=== PATIENT | male | born 1995 | race Caucasian/White ===

== ENCOUNTER 2018-10-02 11:11 | Inpatient (IN) | payer OTHER ==
[2018-10-02] MEDS ORDERED: ZOFRAN ODT PO ONE (11:23)
--- NOTE | 2018-10-02 11:26 | Event Note ---
ED Screening Note Date of service: 10/02/18 Time: 11:22 ED Screening Note: 23 y/o male comes in for epigastric pain with N/V. time 1 day This initial assessment/diagnostic orders/clinical plan/treatment(s) is/are subject to change based on patients health status, clinical progression and re-assessment by fellow clinical providers in the ED. Further treatment and workup at subsequent clinical providers discretion. Patient/guardian urged not to elope from the ED as their condition may be serious if not clinically assessed and managed. Initial orders include:
[2018-10-02 12:23] LABS: Hematocrit 39.1 % (35.5-45.6); Hemoglobin 13.2 gm/dl (11.8-15.2); Mean Corpuscular HGB Conc 34 % (32-34); Mean Corpuscular Volume 81 fl (84-94); Platelet Count 216 K/mm3 (140-440); Red Blood Count 4.84 M/mm3 (3.65-5.03); Red Cell Distribution Width 13.7 % (13.2-15.2)
[2018-10-02 12:28] LABS: Albumin 4.7 g/dL (3.9-5); Calcium 7.8 mg/dL (8.4-10.2)
[2018-10-02] MEDS ORDERED: NACL 0.9% 1000 ML 1,000 ML IV ONE (12:49)
[2018-10-02 12:50] LABS: Bacteria,Urine 1+ /HPF (Negative); Bilirubin,Urine NEG (Negative); Blood,Urine SM (Negative); Color,Urine Straw (Yellow); Urobilinogen,Urine < 2.0 mg/dL (<2.0); WBC,Urine < 1.0 /HPF (0.0-6.0)
[2018-10-02] MEDS ORDERED: MORPHINE IV ONE (12:53)
[2018-10-02] MEDS ORDERED: PEPCID IV ONE (12:53)
--- NOTE | 2018-10-02 12:54 | Emergency Department Report ---
ED N/V/D HPI - General Chief complaint: Abdominal Pain Stated complaint: STOMACH PAIN/NAUSEA/VOMITING Time Seen by Provider: 10/02/18 11:21 Source: patient Mode of arrival: Ambulatory Limitations: No Limitations - History of Present Illness Initial comments: 23-year-old male with no past medical or surgical history presents to the hospital complaining of a week and nausea, vomiting, diarrhea, and moderate intermittent epigastric pain. Pain is worse to palpation. Patient denies melena, hematochezia, hematemesis, fever, recent travel, or sick contacts. Patient complains of feeling dizzy. Pt denies daily alcohol intake. - Related Data Allergies Allergy/AdvReac Type Severity Reaction Status Date / Time No Known Allergies Allergy Verified 10/02/18 14:49 ED Review of Systems ROS: Stated complaint: STOMACH PAIN/NAUSEA/VOMITING Other details as noted in HPI Comment: All other systems reviewed and negative ED Past Medical Hx - Past Medical History Previous Medical History?: No - Surgical History Past Surgical History?: No - Social History Smoking Status: Never Smoker Substance Use Type: None ED Physical Exam - General Limitations: No Limitations - Other Other exam information: General: No acute distress Head: Atraumatic normocephalic Eyes: Normal appearance, pupils equal reactive to light, extraocular movements intact ENT: dry tongue Neck: Normal appearance, no C-spine tenderness, no meningismus Chest: Clear to auscultation bilaterally, no wheezes, rales, or crackles Cardiovascular: Regular rate and rhythm Abdomen: Soft, nondistended, mild epigastric tendernes, no rebound or guarding, normal bowel sounds Back: Normal inspection, nontender Extremity: Normal inspection, no deformity, full range of motion Neuro: Alert and oriented 3, speech clear, no gross motor or sensory deficit Skin: No rash, warmth, or erythema ED Course Vital Signs 10/02/18 10/02/18 10/02/18 11:21 13:15 14:00 Temperature 97.7 F Pulse Rate 52 L 47 L Respiratory 18 16 12 Rate Blood Pressure 169/87 170/86 O2 Sat by Pulse 99 100 Oximetry - Consultations Consultation #1: 10/02/18 13:57 Case d/w nephro Dr diaz, will consult ED Medical Decision Making - Lab Data Result diagrams: 10/02/18 11:34 10/02/18 11:34 Lab Results 10/02/18 10/02/18 10/02/18 Range/Units 11:34 11:34 11:34 WBC 11.2 H (4.5-11.0) K/mm3 RBC 4.84 (3.65-5.03) M/mm3 Hgb 13.2 (11.8-15.2) gm/dl Hct 39.1 (35.5-45.6) % MCV 81 L (84-94) fl MCH 27 L (28-32) pg MCHC 34 (32-34) % RDW 13.7 (13.2-15.2) % Plt Count 216 (140-440) K/mm3 Add Manual Diff Complete Total Counted 100 Seg Neutrophils % Nutrition Teacher Seg Neuts % (Manual) 99.0 H (40.0-70.0) % Band Neutrophils % 0 % Lymphocytes % (Manual) 1.0 L (13.4-35.0) % Reactive Lymphs % (Man) 0 % Monocytes % (Manual) 0 (0.0-7.3) % Eosinophils % (Manual) 0 (0.0-4.3) % Basophils % (Manual) 0 (0.0-1.8) % Metamyelocytes % 0 % Myelocytes % 0 % Promyelocytes % 0 % Blast Cells % 0 % Nucleated RBC % Not Reportable Seg Neutrophils # Man 11.1 H (1.8-7.7) K/mm3 Band Neutrophils # 0.0 K/mm3 Lymphocytes # (Manual) 0.1 L (1.2-5.4) K/mm3 Abs React Lymphs (Man) 0.0 K/mm3 Monocytes # (Manual) 0.0 (0.0-0.8) K/mm3 Eosinophils # (Manual) 0.0 (0.0-0.4) K/mm3 Basophils # (Manual) 0.0 (0.0-0.1) K/mm3 Metamyelocytes # 0.0 K/mm3 Myelocytes # 0.0 K/mm3 Promyelocytes # 0.0 K/mm3 Blast Cells # 0.0 K/mm3 WBC Morphology Not Reportable Hypersegmented Neuts Not Reportable Hyposegmented Neuts Not Reportable Hypogranular Neuts Not Reportable Smudge Cells Not Reportable Toxic Granulation Not Reportable Toxic Vacuolation Not Reportable Dohle Bodies Not Reportable Pelger-Huet Anomaly Not Reportable Raj Rods Not Reportable Platelet Estimate Consistent w auto Clumped Platelets Not Reportable Plt Clumps, EDTA Not Reportable Large Platelets Not Reportable Giant Platelets Not Reportable Platelet Satelliting Not Reportable Plt Morphology Comment Not Reportable RBC Morphology Normal Dimorphic RBCs Not Reportable Polychromasia Not Reportable Hypochromasia Not Reportable Poikilocytosis Not Reportable Anisocytosis Not Reportable Microcytosis Not Reportable Macrocytosis Not Reportable Spherocytes Not Reportable Pappenheimer Bodies Not Reportable Sickle Cells Not Reportable Target Cells Not Reportable Tear Drop Cells Not Reportable Ovalocytes Not Reportable Helmet Cells Not Reportable [place] Bodies Not Reportable [place] Not Reportable Diamond Cells Not Reportable Bite Cells Not Reportable Crenated Cell Not Reportable Elliptocytes Not Reportable Acanthocytes (Spur) Not Reportable Rouleaux Not Reportable Hemoglobin C Crystals Not Reportable Schistocytes Not Reportable Malaria parasites Not Reportable Vamshi Bodies Not Reportable Hem Pathologist Commnt No Sodium 138 (137-145) mmol/L Potassium 3.7 (3.6-5.0) mmol/L Chloride 101.6 (98-107) mmol/L Carbon Dioxide 16 L (22-30) mmol/L Anion Gap 24 mmol/L BUN 62 H (9-20) mg/dL Creatinine 7.0 H (0.8-1.5) mg/dL Estimated GFR 10 ml/min BUN/Creatinine Ratio 9 % Glucose 152 H (75-100) mg/dL Osmolality Mosm/kg Calcium 7.8 L (8.4-10.2) mg/dL Magnesium (1.7-2.3) mg/dL Total Bilirubin 0.50 (0.1-1.2) mg/dL AST 11 (5-40) units/L ALT 14 (7-56) units/L Alkaline Phosphatase 139 H (35-129) units/L Total Creatine Kinase (55-170) units/L Troponin T (0.00-0.029) ng/mL Total Protein 8.3 H (6.3-8.2) g/dL Albumin 4.7 (3.9-5) g/dL Albumin/Globulin Ratio 1.3 % Lipase 38 (13-60) units/L Urine Color (Yellow) Urine Turbidity (Clear) Urine pH (5.0-7.0) Ur Specific [place] (1.003-1.030) Urine Protein (Negative) mg/dL Urine Glucose (UA) (Negative) mg/dL Urine Ketones (Negative) mg/dL Urine Blood (Negative) Urine Nitrite (Negative) Urine Bilirubin (Negative) Urine Urobilinogen (<2.0) mg/dL Ur Leukocyte Esterase (Negative) Urine WBC (Auto) (0.0-6.0) /HPF Urine RBC (Auto) (0.0-6.0) /HPF Urine Bacteria (Auto) (Negative) /HPF Urine Osmolality Mosm/kg Urine Sodium mmol/L Urine Chloride (110-250) mmolL 10/02/18 10/02/18 10/02/18 Range/Units 11:34 11:34 11:34 WBC (4.5-11.0) K/mm3 RBC (3.65-5.03) M/mm3 Hgb (11.8-15.2) gm/dl Hct (35.5-45.6) % MCV (84-94) fl MCH (28-32) pg MCHC (32-34) % RDW (13.2-15.2) % Plt Count (140-440) K/mm3 Add Manual Diff Total Counted Seg Neutrophils % Seg Neuts % (Manual) (40.0-70.0) % Band Neutrophils % % Lymphocytes % (Manual) (13.4-35.0) % Reactive Lymphs % (Man) % Monocytes % (Manual) (0.0-7.3) % Eosinophils % (Manual) (0.0-4.3) % Basophils % (Manual) (0.0-1.8) % Metamyelocytes % % Myelocytes % % Promyelocytes % % Blast Cells % % Nucleated RBC % Seg Neutrophils # Man (1.8-7.7) K/mm3 Band Neutrophils # K/mm3 Lymphocytes # (Manual) (1.2-5.4) K/mm3 Abs React Lymphs (Man) K/mm3 Monocytes # (Manual) (0.0-0.8) K/mm3 Eosinophils # (Manual) (0.0-0.4) K/mm3 Basophils # (Manual) (0.0-0.1) K/mm3 Metamyelocytes # K/mm3 Myelocytes # K/mm3 Promyelocytes # K/mm3 Blast Cells # K/mm3 WBC Morphology Hypersegmented Neuts Hyposegmented Neuts Hypogranular Neuts Smudge Cells Toxic Granulation Toxic Vacuolation Dohle Bodies Pelger-Huet Anomaly Raj Rods Platelet Estimate Clumped Platelets Plt Clumps, EDTA Large Platelets Giant Platelets Platelet Satelliting Plt Morphology Comment RBC Morphology Dimorphic RBCs Polychromasia Hypochromasia Poikilocytosis Anisocytosis Microcytosis Macrocytosis Spherocytes Pappenheimer Bodies Sickle Cells Target Cells Tear Drop Cells Ovalocytes Helmet Cells [place] Bodies [place] Diamond Cells Bite Cells Crenated Cell Elliptocytes Acanthocytes (Spur) Rouleaux Hemoglobin C Crystals Schistocytes Malaria parasites Vamshi Bodies Hem Pathologist Commnt Sodium (137-145) mmol/L Potassium (3.6-5.0) mmol/L Chloride (98-107) mmol/L Carbon Dioxide (22-30) mmol/L Anion Gap mmol/L BUN (9-20) mg/dL Creatinine (0.8-1.5) mg/dL Estimated GFR ml/min BUN/Creatinine Ratio % Glucose (75-100) mg/dL Osmolality Mosm/kg Calcium (8.4-10.2) mg/dL Magnesium 1.70 (1.7-2.3) mg/dL Total Bilirubin (0.1-1.2) mg/dL AST (5-40) units/L ALT (7-56) units/L Alkaline Phosphatase (35-129) units/L Total Creatine Kinase 248 H (55-170) units/L Troponin T < 0.010 (0.00-0.029) ng/mL Total Protein (6.3-8.2) g/dL Albumin (3.9-5) g/dL Albumin/Globulin Ratio % Lipase (13-60) units/L Urine Color (Yellow) Urine Turbidity (Clear) Urine pH (5.0-7.0) Ur Specific [place] (1.003-1.030) Urine Protein (Negative) mg/dL Urine Glucose (UA) (Negative) mg/dL Urine Ketones (Negative) mg/dL Urine Blood (Negative) Urine Nitrite (Negative) Urine Bilirubin (Negative) Urine Urobilinogen (<2.0) mg/dL Ur Leukocyte Esterase (Negative) Urine WBC (Auto) (0.0-6.0) /HPF Urine RBC (Auto) (0.0-6.0) /HPF Urine Bacteria (Auto) (Negative) /HPF Urine Osmolality Mosm/kg Urine Sodium mmol/L Urine Chloride (110-250) mmolL 10/02/18 10/02/18 10/02/18 Range/Units 12:16 12:40 12:50 WBC (4.5-11.0) K/mm3 RBC (3.65-5.03) M/mm3 Hgb (11.8-15.2) gm/dl Hct (35.5-45.6) % MCV (84-94) fl MCH (28-32) pg MCHC (32-34) % RDW (13.2-15.2) % Plt Count (140-440) K/mm3 Add Manual Diff Total Counted Seg Neutrophils % Seg Neuts % (Manual) (40.0-70.0) % Band Neutrophils % % Lymphocytes % (Manual) (13.4-35.0) % Reactive Lymphs % (Man) % Monocytes % (Manual) (0.0-7.3) % Eosinophils % (Manual) (0.0-4.3) % Basophils % (Manual) (0.0-1.8) % Metamyelocytes % % Myelocytes % % Promyelocytes % % Blast Cells % % Nucleated RBC % Seg Neutrophils # Man (1.8-7.7) K/mm3 Band Neutrophils # K/mm3 Lymphocytes # (Manual) (1.2-5.4) K/mm3 Abs React Lymphs (Man) K/mm3 Monocytes # (Manual) (0.0-0.8) K/mm3 Eosinophils # (Manual) (0.0-0.4) K/mm3 Basophils # (Manual) (0.0-0.1) K/mm3 Metamyelocytes # K/mm3 Myelocytes # K/mm3 Promyelocytes # K/mm3 Blast Cells # K/mm3 WBC Morphology Hypersegmented Neuts Hyposegmented Neuts Hypogranular Neuts Smudge Cells Toxic Granulation Toxic Vacuolation Dohle Bodies Pelger-Huet Anomaly Raj Rods Platelet Estimate Clumped Platelets Plt Clumps, EDTA Large Platelets Giant Platelets Platelet Satelliting Plt Morphology Comment RBC Morphology Dimorphic RBCs Polychromasia Hypochromasia Poikilocytosis Anisocytosis Microcytosis Macrocytosis Spherocytes Pappenheimer Bodies Sickle Cells Target Cells Tear Drop Cells Ovalocytes Helmet Cells [place] Bodies [place] Cells Bite Cells Crenated Cell Elliptocytes Acanthocytes (Spur) Rouleaux Hemoglobin C Crystals Schistocytes Malaria parasites Vamshi Bodies Hem Pathologist Commnt Sodium (137-145) mmol/L Potassium (3.6-5.0) mmol/L Chloride (98-107) mmol/L Carbon Dioxide (22-30) mmol/L Anion Gap mmol/L BUN (9-20) mg/dL Creatinine (0.8-1.5) mg/dL Estimated GFR ml/min BUN/Creatinine Ratio % Glucose (75-100) mg/dL Osmolality 309 Mosm/kg Calcium (8.4-10.2) mg/dL Magnesium (1.7-2.3) mg/dL Total Bilirubin (0.1-1.2) mg/dL AST (5-40) units/L ALT (7-56) units/L Alkaline Phosphatase (35-129) units/L Total Creatine Kinase (55-170) units/L Troponin T (0.00-0.029) ng/mL Total Protein (6.3-8.2) g/dL Albumin (3.9-5) g/dL Albumin/Globulin Ratio % Lipase (13-60) units/L Urine Color Straw (Yellow) Urine Turbidity Clear (Clear) Urine pH 6.0 (5.0-7.0) Ur Specific [place] 1.009 (1.003-1.030) Urine Protein >500 (Negative) mg/dL Urine Glucose (UA) 50 (Negative) mg/dL Urine Ketones Neg (Negative) mg/dL Urine Blood Sm (Negative) Urine Nitrite Neg (Negative) Urine Bilirubin Neg (Negative) Urine Urobilinogen < 2.0 (<2.0) mg/dL Ur Leukocyte Esterase Neg (Negative) Urine WBC (Auto) < 1.0 (0.0-6.0) /HPF Urine RBC (Auto) 6.0 (0.0-6.0) /HPF Urine Bacteria (Auto) 1+ (Negative) /HPF Urine Osmolality 281 Mosm/kg Urine Sodium 43 mmol/L Urine Chloride 29.4 L (110-250) mmolL - EKG Data -: EKG Interpreted by Hi EKG shows normal: sinus rhythm, axis (qrs 77), QRS complexes (qrsd 100), ST-T waves (no stemi/t inv) Rate: bradycardia (54) - Radiology Data Radiology results: report reviewed CT ABDOMEN AND PELVIS WITHOUT CONTRAST INDICATION / CLINICAL INFORMATION: MAIN: mid abd pain, started yesterday n,v,d acute renal failure. TECHNIQUE: Axial CT images were obtained through the abdomen and pelvis without IV contrast. All CT scans at this location are performed using CT dose reduction for ALARA by means of automated exposure control. COMPARISON: None available. FINDINGS: LOWER CHEST: No significant abnormality. LIVER: No significant abnormality. GALLBLADDER: No significant abnormality. BILE DUCTS: No significant abnormality. PANCREAS: No significant abnormality. SPLEEN: No significant abnormality. ADRENALS: No significant abnormality. RIGHT KIDNEY and URETER: Decreased size long axis 9 cm LEFT KIDNEY and URETER: Decreased size long axis 8.3 cm. Single punctate calcifications present left kidney STOMACH and SMALL BOWEL: No significant abnormality. COLON: No significant abnormality. APPENDIX: Multiple small calculi present in the appendix PERITONEUM: No free fluid. No free air. No fluid collection. LYMPH NODES: No significant adenopathy. AORTA and ARTERIES: No significant abnormality. IVC and VEINS: No significant abnormality. URINARY BLADDER: No significant abnormality. REPRODUCTIVE ORGANS: No significant abnormality. ADDITIONAL FINDINGS: None SKELETAL SYSTEM: Bilateral pars defect L5 without a significant spondylolisthesis L5-S1 IMPRESSION: 1. No significant abnormality. 2. Multiple small calculi within the appendix 3. Slightly shrunken kidneys 4. Left nephrolithiasis 5. Bilateral pars defect L5 - Medical Decision Making pt requires admission for acute renal failure an htn n/v/d with unremarkable ct nephrology consulted hospitalist informed pt tx with IVF/ns, and zofran - Differential Diagnosis dehdyration, gastroeneteritis, pancreatitis, Critical Care Time: No Critical care attestation.: If time is entered above; I have spent that time in minutes in the direct care of this critically ill patient, excluding procedure time. ED Disposition Clinical Impression: Gastroenteritis, ARF (acute renal failure), Elevated blood pressure reading Disposition: OP ADMIT IP TO THIS HOSP Is pt being admited?: Yes Does the pt Need Aspirin: No Condition: Stable Time of Disposition: 14:00 (Dr lynn/hospitalist)
[2018-10-02 12:55] LABS: Protein,Urine >500 mg/dL (Negative)
[2018-10-02 13:07] LABS: Basophils % (Manual) 0 % (0.0-1.8); Eosinophils % (Manual) 0 % (0.0-4.3); Monocytes % (Manual) 0 % (0.0-7.3); Total Cells Counted 100
[2018-10-02 13:08] LABS: Platelet Estimate Consistent w Auto; RBC Morphology Normal
[2018-10-02 13:26] LABS: Chloride, Urine 29.4 mmolL (110-250)
--- NOTE | 2018-10-02 13:36 | Cat Scan Report ---
CT ABDOMEN AND PELVIS WITHOUT CONTRAST INDICATION / CLINICAL INFORMATION: MAIN: mid abd pain, started yesterday n,v,d acute renal failure. TECHNIQUE: Axial CT images were obtained through the abdomen and pelvis without IV contrast. All CT scans at [facility] location are performed using CT dose reduction for ALARA by means of automated exposure control. COMPARISON: None available. FINDINGS: LOWER CHEST: No significant abnormality. LIVER: No significant abnormality. GALLBLADDER: No significant abnormality. BILE DUCTS: No significant abnormality. PANCREAS: No significant abnormality. SPLEEN: No significant abnormality. ADRENALS: No significant abnormality. RIGHT KIDNEY and URETER: Decreased size long axis 9 cm LEFT KIDNEY and URETER: Decreased size long axis 8.3 cm. Single punctate calcifications present left kidney STOMACH and SMALL BOWEL: No significant abnormality. COLON: No significant abnormality. APPENDIX: Multiple small calculi present in the appendix PERITONEUM: No free fluid. No free air. No fluid collection. LYMPH NODES: No significant adenopathy. AORTA and ARTERIES: No significant abnormality. IVC and VEINS: No significant abnormality. URINARY BLADDER: No significant abnormality. REPRODUCTIVE ORGANS: No significant abnormality. ADDITIONAL FINDINGS: None SKELETAL SYSTEM: Bilateral pars defect L5 without a significant spondylolisthesis L5-S1 IMPRESSION: 1. No significant abnormality. 2. Multiple small calculi within the appendix 3. Slightly shrunken kidneys 4. Left nephrolithiasis 5. Bilateral pars defect L5 Signer Name: Jian Orourke MD Signed: 10/02/2018 1:32 PM Workstation Name: [id number]
--- NOTE | 2018-10-02 14:24 | Consultation ---
History of Present Illness - Reason for Consult Consult date: 10/02/18 acute renal failure Requesting physician: TIFFANI GUTIÉRREZ - History of Present Illness This is a 23 y/o M who presented to [facility] ED with c/o nausea, vomiting, diarrhea, and abdominal pain for the past week. Pt denies any other complaints besides N/V/D, and ABD Pain. Pt doesn't speak Maltese, speaks Yoruba, I called the testing manager line to assist with history. Pt denies kidney problems to his knowledge. Pt reported taking one advil over the past week or so, states he doesn't take medications at home. CT ABD Pelvis w/o contrast showed no significant abnormality, left nephrolithiasis, slightly shrunken kidneys, and multiple small calculi within the appendix. On admission, SCr level was 7.0. S/p NS Bolus, start on IV continuous IV fluids. We were consulted to evaluate this pt who has LUDY. Pt seen in ED. . Medications and Allergies Allergies Allergy/AdvReac Type Severity Reaction Status Date / Time No Known Allergies Allergy Verified 10/02/18 14:49 Review of Systems Cardiovascular: no chest pain, no shortness of breath Respiratory: no shortness of breath Gastrointestinal: abdominal pain, nausea, vomiting, diarrhea, no hematemesis, no melena Genitourinary Male: no dysuria, no hematuria Integumentary: no wounds Exam - Vital Signs Vital signs: Vital Signs Temp Pulse Resp BP Pulse Ox 97.7 F 52 L 18 169/87 99 10/02/18 11:21 10/02/18 11:21 10/02/18 11:21 10/02/18 11:21 10/02/18 11:21 - General Appearance General appearance: other (awake) EENT: ATNC Neck: Present: neck supple Respiratory: Clear to Ascultation Heart: regular, S1S2 Gastrointestinal: Present: normoactive bowel sounds, tenderness Integumentary: warm and dry Neurologic: alert and oriented x3 Musculoskeletal: Present: other (no edema to BLE) Psychiatric: cooperative Results - Lab Results 10/02/18 11:34 10/02/18 11:34 Most recent lab results Calcium 7.8 mg/dL (8.4-10.2) L 10/02/18 11:34 Magnesium 1.70 mg/dL (1.7-2.3) 10/02/18 11:34 43 mmol/L 10/02/18 12:50 Assessment and Plan Acute Kidney Injury secondary to prerenal in setting of vomiting, diarrhea, ? CKD, no obstruction, Non-Anion Gap Metabolic Acidosis Abdominal Pain Nausea and vomiting Diarrhea Left Nephrolithiasis Plan: - Renal function reviewed, SCr level was 7.0 today - No acute indication for initiation of STRATEGY CONSULTANT at this time - Exact SCr baseline unknown - S/p 0.9% NS Bolus - Start 0.9% NS infusion at 100 ml/hr - Possible need for sodium bicarbonate supplementation - Repeat BMP at 1900 - Renally dose meds - Obtain urine lytes/protein - Check urine eosinophils - No obstruction noted on CT - Strict intake and output - Caraballo Catheter: No - Renal plan d/w Dr Wallace
[2018-10-02] MEDS ORDERED: ZOFRAN IV PRN ×3 (18:02→19:38)
[2018-10-02] MEDS ORDERED: TYLENOL PO PRN ×2 (18:03→19:32)
[2018-10-02] MEDS: NACL 0.9% 1000 ML 1,000 ML IV SCH (18:11)
[2018-10-02] MEDS ORDERED: MORPHINE IV PRN (18:12)
[2018-10-02] MEDS ORDERED: DILAUDID IV PRN (19:32)
[2018-10-02] MEDS ORDERED: SODIUM CHLORIDE FLUSH SYRINGE 10 ML IV PRN ×2 (19:32→19:38)
[2018-10-02] MEDS ORDERED: SODIUM CHLORIDE FLUSH SYRINGE 10 ML IV SCH (22:00)
[2018-10-03] MEDS: SODIUM CHLORIDE FLUSH SYRINGE 10 ML IV SCH ×2 (00:29→13:16)
[2018-10-03] MEDS: NACL 0.9% 1000 ML 1,000 ML IV SCH ×2 (03:50→13:15)
[2018-10-03 05:15] LABS: Hematocrit 35.9 % (35.5-45.6); Hemoglobin 12.1 gm/dl (11.8-15.2); Mean Corpuscular HGB Conc 34 % (32-34); Mean Corpuscular Volume 80 fl (84-94); Platelet Count 198 K/mm3 (140-440); Red Blood Count 4.46 M/mm3 (3.65-5.03); Red Cell Distribution Width 13.4 % (13.2-15.2)
[2018-10-03 05:31] LABS: Calcium 7.6 mg/dL (8.4-10.2)
--- NOTE | 2018-10-03 06:13 | History and Physical Report ---
History of Present Illness Date of examination: 10/02/18 Date of admission: 10/02/18 14:02 Chief complaint: Nausea Vomiting and Diarrhea for one week History of present illness: 23-year-old male with no past medical or surgical history presents to the hospital complaining of nausea, vomiting, diarrhea, and moderate intermittent epigastric pain for one week. Pain is worse to palpation. Patient denies melena, hematochezia, hematemesis, fever, recent travel, or sick contacts. Patient complains of feeling dizzy. Pt denies daily alcohol intake. Past Medical History Previous Medical History?: No Surgical History Past Surgical History?: No Social History Smoking Status: Never Smoker Substance Use Type: None Family History None Review of Systems ROS: Stated complaint: STOMACH PAIN/NAUSEA/VOMITING Other details as noted in HPI Comment: All other systems reviewed and negative Medications and Allergies Allergies Allergy/AdvReac Type Severity Reaction Status Date / Time No Known Allergies Allergy Verified 10/02/18 14:49 Home Medications Medication Instructions Recorded Confirmed Last Taken Type No Known Home Medications [No 10/02/18 10/02/18 Unknown History Reported Home Medications] Active Meds: Active Medications Acetaminophen (Tylenol) 650 mg PO Q6H PRN PRN Reason: Pain, Mild (1-3) Hydromorphone HCl (Dilaudid) 0.5 mg IV Q3H PRN PRN Reason: Pain , Severe (7-10) Sodium Chloride (Nacl 0.9% 1000 Ml) 1,000 mls @ 100 mls/hr IV DIRECT [facility] Last Admin: 10/03/18 03:50 Dose: 100 mls/hr Documented by: Metoclopramide HCl (Reglan) 10 mg IV Q6H PRN PRN Reason: Nausea And Vomiting Morphine Sulfate (Morphine) 2 mg IV Q4H PRN PRN Reason: Pain, Moderate (4-6) Ondansetron HCl (Zofran) 4 mg IV Q8H PRN PRN Reason: Nausea And Vomiting Sodium Chloride (Sodium Chloride Flush Syringe 10 Ml) 10 ml IV BID [facility] Last Admin: 10/03/18 00:29 Dose: Not Given Documented by: Sodium Chloride (Sodium Chloride Flush Syringe 10 Ml) 10 ml IV PRN PRN PRN Reason: LINE FLUSH Exam - Constitutional Vitals: Temp Pulse Resp BP Pulse Ox 98.1 F 54 L 16 164/77 100 08/19/19 04:55 10/03/18 04:55 10/03/18 04:55 10/03/18 04:55 10/03/18 04:55 General appearance: Present: no acute distress, well-nourished - EENT Eyes: Present: PERRL ENT: hearing intact, clear oral mucosa, other (Dry mucous membranes) - Neck Neck: Present: supple, normal ROM - Respiratory Respiratory effort: normal Respiratory: bilateral: CTA - Cardiovascular Heart Sounds: Present: S1 & S2. Absent: rub, click - Extremities Extremities: pulses symmetrical, No edema Peripheral Pulses: within normal limits - Abdominal General gastrointestinal: Present: soft, non-tender, non-distended, normal bowel sounds Male genitourinary: Present: normal - Integumentary Integumentary: Present: clear, warm, dry - Musculoskeletal Musculoskeletal: gait normal, strength equal bilaterally - Psychiatric Psychiatric: appropriate mood/affect, intact judgment & insight - Neurologic Neurologic: CNII-XII intact, moves all extremities - Allied Health Allied health notes reviewed: case management Results - Labs CBC & Chem 7: 10/03/18 04:22 10/03/18 04:22 Labs: Laboratory Last Values WBC 9.3 K/mm3 (4.5-11.0) 10/03/18 04:22 RBC 4.46 M/mm3 (3.65-5.03) 10/03/18 04:22 Hgb 12.1 gm/dl (11.8-15.2) 10/03/18 04:22 Hct 35.9 % (35.5-45.6) 10/03/18 04:22 MCV 80 fl (84-94) L 10/03/18 04:22 MCH 27 pg (28-32) L 10/03/18 04:22 MCHC 34 % (32-34) 10/03/18 04:22 RDW 13.4 % (13.2-15.2) 10/03/18 04:22 Plt Count 198 K/mm3 (140-440) 10/03/18 04:22 Add Manual Diff Complete 10/02/18 11:34 Total Counted 100 10/02/18 11:34 Seg Neutrophils % Cottage [employer]visor 10/02/18 11:34 Seg Neuts % (Manual) 99.0 % (40.0-70.0) H 10/02/18 11:34 0 % 10/02/18 11:34 1.0 % (13.4-35.0) L 10/02/18 11:34 Reactive Lymphs % (Man) 0 % 10/02/18 11:34 0 % (0.0-7.3) 10/02/18 11:34 0 % (0.0-4.3) 10/02/18 11:34 0 % (0.0-1.8) 10/02/18 11:34 0 % 10/02/18 11:34 0 % 10/02/18 11:34 0 % 10/02/18 11:34 0 % 10/02/18 11:34 Nucleated RBC % Not Reportable 10/02/18 11:34 Seg Neutrophils # Man 11.1 K/mm3 (1.8-7.7) H 10/02/18 11:34 Band Neutrophils # 0.0 K/mm3 10/02/18 11:34 0.1 K/mm3 (1.2-5.4) L 10/02/18 11:34 Abs React Lymphs (Man) 0.0 K/mm3 10/02/18 11:34 0.0 K/mm3 (0.0-0.8) 10/02/18 11:34 0.0 K/mm3 (0.0-0.4) 10/02/18 11:34 0.0 K/mm3 (0.0-0.1) 10/02/18 11:34 0.0 K/mm3 10/02/18 11:34 0.0 K/mm3 10/02/18 11:34 0.0 K/mm3 10/02/18 11:34 Blast Cells # 0.0 K/mm3 10/02/18 11:34 WBC Morphology Not Reportable 10/02/18 11:34 Hypersegmented Neuts Not Reportable 10/02/18 11:34 Hyposegmented Neuts Not Reportable 10/02/18 11:34 Hypogranular Neuts Not Reportable 10/02/18 11:34 Not Reportable 10/02/18 11:34 Not Reportable 10/02/18 11:34 Not Reportable 10/02/18 11:34 Not Reportable 10/02/18 11:34 Not Reportable 10/02/18 11:34 Not Reportable 10/02/18 11:34 Consistent w auto 10/02/18 11:34 Not Reportable 10/02/18 11:34 Plt Clumps, EDTA Not Reportable 10/02/18 11:34 Not Reportable 10/02/18 11:34 Not Reportable 10/02/18 11:34 Not Reportable 10/02/18 11:34 Plt Morphology Comment Not Reportable 10/02/18 11:34 RBC Morphology Normal 10/02/18 11:34 Dimorphic RBCs Not Reportable 10/02/18 11:34 Not Reportable 10/02/18 11:34 Not Reportable 10/02/18 11:34 Not Reportable 10/02/18 11:34 Not Reportable 10/02/18 11:34 Not Reportable 10/02/18 11:34 Not Reportable 10/02/18 11:34 Not Reportable 10/02/18 11:34 Not Reportable 10/02/18 11:34 Not Reportable 10/02/18 11:34 Not Reportable 10/02/18 11:34 Not Reportable 10/02/18 11:34 Not Reportable 10/02/18 11:34 Not Reportable 10/02/18 11:34 Not Reportable 10/02/18 11:34 Not Reportable 10/02/18 11:34 Not Reportable 10/02/18 11:34 Not Reportable 10/02/18 11:34 Not Reportable 10/02/18 11:34 Not Reportable 10/02/18 11:34 Acanthocytes (Spur) Not Reportable 10/02/18 11:34 Rouleaux Not Reportable 10/02/18 11:34 Not Reportable 10/02/18 11:34 Not Reportable 10/02/18 11:34 Not Reportable 10/02/18 11:34 Not Reportable 10/02/18 11:34 Hem Pathologist Commnt No 10/02/18 11:34 Sodium 139 mmol/L (137-145) 10/03/18 04:22 Potassium 3.6 mmol/L (3.6-5.0) 10/03/18 04:22 Chloride 103.3 mmol/L (98-107) 10/03/18 04:22 Carbon Dioxide 19 mmol/L (22-30) L 10/03/18 04:22 20 mmol/L 10/03/18 04:22 BUN 60 mg/dL (9-20) H 10/03/18 04:22 6.3 mg/dL (0.8-1.5) H 10/03/18 04:22 Estimated GFR 11 ml/min 10/03/18 04:22 10 % 10/03/18 04:22 Glucose 104 mg/dL (75-100) H 10/03/18 04:22 5.3 % (4-6) 10/02/18 Unknown 309 Mosm/kg 10/02/18 12:40 Calcium 7.6 mg/dL (8.4-10.2) L 10/03/18 04:22 Phosphorus 2.40 mg/dL (2.5-4.5) L 10/02/18 Unknown Magnesium 1.70 mg/dL (1.7-2.3) 10/02/18 11:34 0.50 mg/dL (0.1-1.2) 10/02/18 11:34 AST 11 units/L (5-40) 10/02/18 11:34 ALT 14 units/L (7-56) 10/02/18 11:34 139 units/L (35-129) H 10/02/18 11:34 248 units/L (55-170) H 10/02/18 11:34 < 0.010 ng/mL (0.00-0.029) 10/02/18 11:34 8.3 g/dL (6.3-8.2) H 10/02/18 11:34 4.7 g/dL (3.9-5) 10/02/18 11:34 1.3 % 10/02/18 11:34 38 units/L (13-60) 10/02/18 11:34 PTH Intact 349.2 pg/mL (15-65) H 10/02/18 Unknown Straw (Yellow) 10/02/18 12:16 Clear (Clear) 10/02/18 12:16 6.0 (5.0-7.0) 10/02/18 12:16 Ur Specific [place] 1.009 (1.003-1.030) 10/02/18 12:16 >500 mg/dL (Negative) 10/02/18 12:16 50 mg/dL (Negative) 10/02/18 12:16 Neg mg/dL (Negative) 10/02/18 12:16 Sm (Negative) 10/02/18 12:16 Neg (Negative) 10/02/18 12:16 Neg (Negative) 10/02/18 12:16 < 2.0 mg/dL (<2.0) 10/02/18 12:16 Ur Leukocyte Esterase Neg (Negative) 10/02/18 12:16 < 1.0 /HPF (0.0-6.0) 10/02/18 12:16 6.0 /HPF (0.0-6.0) 10/02/18 12:16 1+ /HPF (Negative) 10/02/18 12:16 None seen (None Seen) 10/02/18 15:12 281 Mosm/kg 10/02/18 12:50 43 mmol/L 10/02/18 12:50 29.4 mmolL (110-250) L 10/02/18 12:50 Short CBC 10/02/18 10/03/18 Range/Units 11:34 04:22 WBC 11.2 H 9.3 (4.5-11.0) K/mm3 Hgb 13.2 12.1 (11.8-15.2) gm/dl Hct 39.1 35.9 (35.5-45.6) % Plt Count 216 198 (140-440) K/mm3 BMP 10/02/18 10/03/18 11:34 04:22 Sodium 138 139 Potassium 3.7 3.6 Chloride 101.6 103.3 Carbon Dioxide 16 L 19 L BUN 62 H 60 H Creatinine 7.0 H 6.3 H Glucose 152 H 104 H Calcium 7.8 L 7.6 L Cardiac Enzymes 10/02/18 10/02/18 Range/Units 11:34 11:34 Total Creatine Kinase 248 H (55-170) units/L Troponin T < 0.010 (0.00-0.029) ng/mL Liver Function 10/02/18 Range/Units 11:34 Total Bilirubin 0.50 (0.1-1.2) mg/dL AST 11 (5-40) units/L ALT 14 (7-56) units/L Alkaline Phosphatase 139 H (35-129) units/L Albumin 4.7 (3.9-5) g/dL Urine 10/02/18 Range/Units 12:16 Urine Color Straw (Yellow) Urine pH 6.0 (5.0-7.0) Ur Specific [place] 1.009 (1.003-1.030) Urine Protein >500 (Negative) mg/dL Urine Glucose (UA) 50 (Negative) mg/dL - Imaging and Cardiology EKG: report reviewed (HR 54/min sinus braadycardia) CT scan - abdomen: report reviewed (NAF) Assessment and Plan Advance Directives: Yes (Full code) VTE prophylaxis?: Chemical Plan of care discussed with patient/family: Yes - Patient Problems (1) SIRS (systemic inflammatory response syndrome) Current Visit: Yes Status: Acute Plan to address problem: High white count and severe Gastroenteritis Clinical picture c/w SIRS and ATN (2) LUDY (acute kidney injury) Current Visit: Yes Status: Acute Plan to address problem: Sec to Acute Gastroenteritis IV Fluids for now C/w ATN Nephrology consult requested (3) Gastroenteritis Current Visit: Yes Status: Acute Plan to address problem: IV Fluids for now (4) DVT prophylaxis Current Visit: Yes Status: Acute Plan to address problem: On Heparin and GI prophylaxis
[2018-10-03] MEDS: HEPARIN SUB-Q SCH ×2 (10:51→23:23)
--- NOTE | 2018-10-03 11:50 | Progress Note ---
Assessment and Plan Assessment and plan: (1) SIRS (systemic inflammatory response syndrome) Current Visit: Yes Status: Acute Plan to address problem: High white count and severe Gastroenteritis Clinical picture c/w SIRS and ATN (2) LUDY (acute kidney injury) Current Visit: Yes Status: Acute Plan to address problem: Sec to Acute Gastroenteritis IV Fluids for now C/w ATN Nephrology consult requested (3) Gastroenteritis Current Visit: Yes Status: Acute Plan to address problem: IV Fluids for now (4) DVT prophylaxis Current Visit: Yes Status: Acute Plan to address problem: On Heparin and GI prophylaxis Hospitalist Physical - Constitutional Vitals: Temp Pulse Resp BP Pulse Ox 98.1 F 54 L 16 164/77 100 10/03/18 04:55 10/03/18 04:55 10/03/18 04:55 10/03/18 04:55 10/03/18 04:55 General appearance: Present: no acute distress, well-nourished Results - Labs CBC & Chem 7: 10/03/18 04:22 10/03/18 04:22 Labs: Laboratory Last Values WBC 9.3 K/mm3 (4.5-11.0) 10/03/18 04:22 RBC 4.46 M/mm3 (3.65-5.03) 10/03/18 04:22 Hgb 12.1 gm/dl (11.8-15.2) 10/03/18 04:22 Hct 35.9 % (35.5-45.6) 10/03/18 04:22 MCV 80 fl (84-94) L 10/03/18 04:22 MCH 27 pg (28-32) L 10/03/18 04:22 MCHC 34 % (32-34) 10/03/18 04:22 RDW 13.4 % (13.2-15.2) 10/03/18 04:22 Plt Count 198 K/mm3 (140-440) 10/03/18 04:22 Add Manual Diff Complete 10/02/18 11:34 Total Counted 100 10/02/18 11:34 Seg Neutrophils % Fine Artist 10/02/18 11:34 Seg Neuts % (Manual) 99.0 % (40.0-70.0) H 10/02/18 11:34 0 % 10/02/18 11:34 1.0 % (13.4-35.0) L 10/02/18 11:34 Reactive Lymphs % (Man) 0 % 10/02/18 11:34 0 % (0.0-7.3) 10/02/18 11:34 0 % (0.0-4.3) 10/02/18 11:34 0 % (0.0-1.8) 10/02/18 11:34 0 % 10/02/18 11:34 0 % 10/02/18 11:34 0 % 10/02/18 11:34 0 % 10/02/18 11:34 Nucleated RBC % Not Reportable 10/02/18 11:34 Seg Neutrophils # Man 11.1 K/mm3 (1.8-7.7) H 10/02/18 11:34 Band Neutrophils # 0.0 K/mm3 10/02/18 11:34 0.1 K/mm3 (1.2-5.4) L 10/02/18 11:34 Abs React Lymphs (Man) 0.0 K/mm3 10/02/18 11:34 0.0 K/mm3 (0.0-0.8) 10/02/18 11:34 0.0 K/mm3 (0.0-0.4) 10/02/18 11:34 0.0 K/mm3 (0.0-0.1) 10/02/18 11:34 0.0 K/mm3 10/02/18 11:34 0.0 K/mm3 10/02/18 11:34 0.0 K/mm3 10/02/18 11:34 Blast Cells # 0.0 K/mm3 10/02/18 11:34 WBC Morphology Not Reportable 10/02/18 11:34 Hypersegmented Neuts Not Reportable 10/02/18 11:34 Hyposegmented Neuts Not Reportable 10/02/18 11:34 Hypogranular Neuts Not Reportable 10/02/18 11:34 Not Reportable 10/02/18 11:34 Not Reportable 10/02/18 11:34 Not Reportable 10/02/18 11:34 Not Reportable 10/02/18 11:34 Not Reportable 10/02/18 11:34 Not Reportable 10/02/18 11:34 Consistent w auto 10/02/18 11:34 Not Reportable 10/02/18 11:34 Plt Clumps, EDTA Not Reportable 10/02/18 11:34 Not Reportable 10/02/18 11:34 Not Reportable 10/02/18 11:34 Not Reportable 10/02/18 11:34 Plt Morphology Comment Not Reportable 10/02/18 11:34 RBC Morphology Normal 10/02/18 11:34 Dimorphic RBCs Not Reportable 10/02/18 11:34 Not Reportable 10/02/18 11:34 Not Reportable 10/02/18 11:34 Not Reportable 10/02/18 11:34 Not Reportable 10/02/18 11:34 Not Reportable 10/02/18 11:34 Not Reportable 10/02/18 11:34 Not Reportable 10/02/18 11:34 Not Reportable 10/02/18 11:34 Not Reportable 10/02/18 11:34 Not Reportable 10/02/18 11:34 Not Reportable 10/02/18 11:34 Not Reportable 10/02/18 11:34 Not Reportable 10/02/18 11:34 Not Reportable 10/02/18 11:34 Not Reportable 10/02/18 11:34 Not Reportable 10/02/18 11:34 Not Reportable 10/02/18 11:34 Not Reportable 10/02/18 11:34 Not Reportable 10/02/18 11:34 Acanthocytes (Spur) Not Reportable 10/02/18 11:34 Rouleaux Not Reportable 10/02/18 11:34 Not Reportable 10/02/18 11:34 Not Reportable 10/02/18 11:34 Not Reportable 10/02/18 11:34 Not Reportable 10/02/18 11:34 Hem Pathologist Commnt No 10/02/18 11:34 Sodium 139 mmol/L (137-145) 10/03/18 04:22 Potassium 3.6 mmol/L (3.6-5.0) 10/03/18 04:22 Chloride 103.3 mmol/L (98-107) 10/03/18 04:22 Carbon Dioxide 19 mmol/L (22-30) L 10/03/18 04:22 20 mmol/L 10/03/18 04:22 BUN 60 mg/dL (9-20) H 10/03/18 04:22 6.3 mg/dL (0.8-1.5) H 10/03/18 04:22 Estimated GFR 11 ml/min 10/03/18 04:22 10 % 10/03/18 04:22 Glucose 104 mg/dL (75-100) H 10/03/18 04:22 5.3 % (4-6) 10/02/18 Unknown 309 Mosm/kg 10/02/18 12:40 Calcium 7.6 mg/dL (8.4-10.2) L 10/03/18 04:22 Phosphorus 2.40 mg/dL (2.5-4.5) L 10/02/18 Unknown Magnesium 1.70 mg/dL (1.7-2.3) 10/02/18 11:34 0.50 mg/dL (0.1-1.2) 10/02/18 11:34 AST 11 units/L (5-40) 10/02/18 11:34 ALT 14 units/L (7-56) 10/02/18 11:34 139 units/L (35-129) H 10/02/18 11:34 248 units/L (55-170) H 10/02/18 11:34 < 0.010 ng/mL (0.00-0.029) 10/02/18 11:34 8.3 g/dL (6.3-8.2) H 10/02/18 11:34 4.7 g/dL (3.9-5) 10/02/18 11:34 1.3 % 10/02/18 11:34 38 units/L (13-60) 10/02/18 11:34 PTH Intact 349.2 pg/mL (15-65) H 10/02/18 Unknown Straw (Yellow) 10/02/18 12:16 Clear (Clear) 10/02/18 12:16 6.0 (5.0-7.0) 10/02/18 12:16 Ur Specific [place] 1.009 (1.003-1.030) 10/02/18 12:16 >500 mg/dL (Negative) 10/02/18 12:16 50 mg/dL (Negative) 10/02/18 12:16 Neg mg/dL (Negative) 08/18/19 12:16 Sm (Negative) 10/02/18 12:16 Neg (Negative) 10/02/18 12:16 Neg (Negative) 10/02/18 12:16 < 2.0 mg/dL (<2.0) 10/02/18 12:16 Ur Leukocyte Esterase Neg (Negative) 10/02/18 12:16 < 1.0 /HPF (0.0-6.0) 10/02/18 12:16 6.0 /HPF (0.0-6.0) 10/02/18 12:16 1+ /HPF (Negative) 10/02/18 12:16 None seen (None Seen) 10/02/18 15:12 281 Mosm/kg 10/02/18 12:50 43 mmol/L 10/02/18 12:50 29.4 mmolL (110-250) L 10/02/18 12:50 Active Medications - Current Medications Current Medications: Generic Name Dose Route Start Last Admin Trade Name Freq PRN Reason Stop Dose Admin Acetaminophen 650 mg 10/02/18 18:03 Tylenol PO Q6H PRN Pain, Mild (1-3) Heparin Sodium (Porcine) 5,000 unit 10/03/18 10:00 10/03/18 10:51 Heparin SUB-Q 5,000 unit Q12HR SLIM Administration Hydromorphone HCl 0.5 mg 10/02/18 19:32 Dilaudid IV Q3H PRN Pain , Severe (7-10) Sodium Chloride 1,000 mls @ 100 mls/hr 10/02/18 15:00 10/03/18 03:50 Nacl 0.9% 1000 Ml IV 100 mls/hr DIRECT SLIM Administration Metoclopramide HCl 10 mg 10/02/18 19:38 Reglan IV Q6H PRN Nausea And Vomiting Morphine Sulfate 2 mg 10/02/18 18:12 10/03/18 08:49 Morphine IV 2 mg Q4H PRN Administration Pain, Moderate (4-6) Ondansetron HCl 4 mg 10/02/18 19:32 10/03/18 07:55 Zofran IV 4 mg Q8H PRN Administration Nausea And Vomiting Sodium Chloride 10 ml 10/02/18 22:00 10/03/18 00:29 Sodium Chloride Flush Syringe 10 Ml IV Not Given BID SLIM Sodium Chloride 10 ml 10/02/18 19:32 Sodium Chloride Flush Syringe 10 Ml IV PRN PRN LINE FLUSH
--- NOTE | 2018-10-03 13:41 | Progress Note ---
Assessment and Plan Assessment: Acute Kidney Injury secondary to prerenal in setting of vomiting, diarrhea, ? CKD, no obstruction, Non-Anion Gap Metabolic Acidosis Abdominal Pain Nausea and vomiting Diarrhea Left Nephrolithiasis Plan: - Renal function reviewed, SCr level 6.3 today, serum creatinine was 7.0 yesterday, non-oliguric - No obstruction noted on CT - No acute indication for initiation of GUIDE DELEGATE at this time - Exact SCr baseline unknown - On 0.9% NS infusion @ 100 ml/hr - Urine lytes/protein reviewed. Urine protein >500. Obtain protein/creatinine ratio and GN work-up. - No urine eosinophils - Strict intake and output - Renally dose medications - Avoid nephrotoxic agents - Caraballo Catheter: No - Continue to monitor renal function Subjective Date of service: 10/03/18 Principal diagnosis: ARF Interval history: Patient seen lying in bed. States he is ok. Speaks little Spanish. Objective - Vital Signs Vital signs: Vital Signs - 12hr 10/03/18 10/03/18 10/03/18 04:53 04:55 11:45 Temperature 98.1 F 98.1 F 97.9 F Pulse Rate 53 L 54 L 52 L Respiratory 16 16 20 Rate Blood Pressure 164/77 169/96 Blood Pressure 164/77 [Left] O2 Sat by Pulse 99 100 98 Oximetry - General Appearance General appearance: well-developed, appears stated age EENT: ATNC, PERRL, hearing intact, vision intact Neck: no JVD, supple Respiratory: Present: Decreased Breath Sounds Cardiology: regular, S1S2 Gastrointestinal: normoactive bowel sounds Integumentary: warm and dry Neurologic: alert and oriented x3 Musculoskeletal: other (No edema) - Lab 10/03/18 04:22 10/03/18 04:22 Most recent lab results Calcium 7.6 mg/dL (8.4-10.2) L 10/03/18 04:22 Phosphorus 2.40 mg/dL (2.5-4.5) L 10/02/18 Unknown Magnesium 1.70 mg/dL (1.7-2.3) 10/02/18 11:34 43 mmol/L 10/02/18 12:50 Medications & Allergies - Medications Allergies/Adverse Reactions: Allergies No Known Allergies Allergy (Verified 10/02/18 14:49) Home Medications: Home Medications Medication Instructions Recorded Confirmed Last Taken Type No Known Home Medications [No 10/02/18 10/02/18 Unknown History Reported Home Medications] Active Medications: Generic Name Dose Route Start Last Admin Trade Name Anivalq PRN Reason Stop Dose Admin Acetaminophen 650 mg 10/02/18 18:03 Tylenol PO Q6H PRN Pain, Mild (1-3) Heparin Sodium (Porcine) 5,000 unit 10/03/18 10:00 10/03/18 10:51 Heparin SUB-Q 5,000 unit Q12HR SLIM Administration Hydromorphone HCl 0.5 mg 10/02/18 19:32 Dilaudid IV Q3H PRN Pain , Severe (7-10) Sodium Chloride 1,000 mls @ 100 mls/hr 10/02/18 15:00 10/03/18 13:15 Nacl 0.9% 1000 Ml IV 100 mls/hr DIRECT SLIM Administration Metoclopramide HCl 10 mg 10/02/18 19:38 Reglan IV Q6H PRN Nausea And Vomiting Morphine Sulfate 2 mg 10/02/18 18:12 10/03/18 08:49 Morphine IV 2 mg Q4H PRN Administration Pain, Moderate (4-6) Ondansetron HCl 4 mg 10/02/18 19:32 10/03/18 07:55 Zofran IV 4 mg Q8H PRN Administration Nausea And Vomiting Sodium Chloride 10 ml 10/02/18 22:00 10/03/18 13:16 Sodium Chloride Flush Syringe 10 Ml IV 10 ml BID SLIM Administration Sodium Chloride 10 ml 10/02/18 19:32 Sodium Chloride Flush Syringe 10 Ml IV PRN PRN LINE FLUSH
[2018-10-03 15:02] LABS: Hepatitis B Surface Antigen Non-Reactive (Negative); Hepatitis C Virus Antibody Non-Reactive (NonReactive)
[2018-10-04 06:12] LABS: Hematocrit 38.7 % (35.5-45.6); Mean Corpuscular HGB Conc 34 % (32-34); Mean Corpuscular Volume 81 fl (84-94); Platelet Count 216 K/mm3 (140-440); Red Blood Count 4.78 M/mm3 (3.65-5.03); Red Cell Distribution Width 13.6 % (13.2-15.2)
[2018-10-04] MEDS: REGLAN IV PRN ×2 (06:17→15:35)
[2018-10-04 06:32] LABS: Calcium 7.6 mg/dL (8.4-10.2)
--- NOTE | 2018-10-04 10:07 | Progress Note ---
Assessment and Plan Acute Kidney Injury secondary to prerenal in setting of vomiting, diarrhea, ? CKD, no obstruction, Non-Anion Gap Metabolic Acidosis Abdominal Pain Nausea and vomiting Diarrhea Left Nephrolithiasis Plan: - no major improvement in creatinine, good UOP - will order kidney biopsy, will check PT and PTT - secondary GN work up so far negative for HIV, HCV and HBV - No obstruction noted on CT - No acute indication for initiation of BEAN VINER at this time - cont IVF - No urine eosinophils - Strict intake and output - Renally dose medications - Avoid nephrotoxic agents - Caraballo Catheter: No - Continue to monitor renal function Subjective Date of service: 10/04/18 Principal diagnosis: ARF Interval history: comfortable, denies nausea Objective - Vital Signs Vital signs: Vital Signs - 12hr 10/03/18 10/04/18 10/04/18 22:18 05:24 07:57 Temperature 98.4 F 98.5 F Pulse Rate 49 L 62 51 L Respiratory 16 16 Rate Blood Pressure 111/68 175/99 Blood Pressure 123/73 [Left] O2 Sat by Pulse 98 100 Oximetry - General Appearance General appearance: well-developed, well-nourished, appears stated age EENT: ATNC, PERRL, mucous membranes moist Neck: no JVD, no carotid bruit Respiratory: Present: Clear to Ascultation. Absent: Rales, Ronchi Cardiology: regular, S1S2 Gastrointestinal: normoactive bowel sounds, no tenderness, no distended Integumentary: no rash, warm and dry Neurologic: no focal deficit, no asterixis, alert and oriented x3 Musculoskeletal: other (no edema in BLE) Psychiatric: mood/affect appropriate, cooperative - Lab 10/04/18 05:50 10/04/18 05:50 Most recent lab results Calcium 7.6 mg/dL (8.4-10.2) L 10/04/18 05:50 Phosphorus 2.40 mg/dL (2.5-4.5) L 10/02/18 Unknown Magnesium 1.70 mg/dL (1.7-2.3) 10/02/18 11:34 43 mmol/L 10/02/18 12:50 Medications & Allergies - Medications Allergies/Adverse Reactions: Allergies No Known Allergies Allergy (Verified 10/02/18 14:49) Home Medications: Home Medications Medication Instructions Recorded Confirmed Last Taken Type No Known Home Medications [No 10/02/18 10/02/18 Unknown History Reported Home Medications] Active Medications: Generic Name Dose Route Start Last Admin Trade Name Freq PRN Reason Stop Dose Admin Acetaminophen 650 mg 10/02/18 18:03 Tylenol PO Q6H PRN Pain, Mild (1-3) Heparin Sodium (Porcine) 5,000 unit 10/03/18 10:00 10/03/18 23:23 Heparin SUB-Q 5,000 unit Q12HR SLIM Administration Hydromorphone HCl 0.5 mg 10/02/18 19:32 Dilaudid IV Q3H PRN Pain , Severe (7-10) Sodium Chloride 1,000 mls @ 100 mls/hr 10/02/18 15:00 10/03/18 13:15 Nacl 0.9% 1000 Ml IV 100 mls/hr DIRECT SLIM Administration Metoclopramide HCl 10 mg 10/02/18 19:38 10/04/18 06:17 Reglan IV 10 mg Q6H PRN Administration Nausea And Vomiting Morphine Sulfate 2 mg 10/02/18 18:12 10/03/18 08:49 Morphine IV 2 mg Q4H PRN Administration Pain, Moderate (4-6) Ondansetron HCl 4 mg 10/02/18 19:32 10/03/18 07:55 Zofran IV 4 mg Q8H PRN Administration Nausea And Vomiting Sodium Chloride 10 ml 10/02/18 22:00 10/03/18 13:16 Sodium Chloride Flush Syringe 10 Ml IV 10 ml BID SLIM Administration Sodium Chloride 10 ml 10/02/18 19:32 Sodium Chloride Flush Syringe 10 Ml IV PRN PRN LINE FLUSH
[2018-10-04] MEDS: NACL 0.9% 1000 ML 1,000 ML IV SCH ×2 (11:03→21:09)
[2018-10-04] MEDS: SODIUM CHLORIDE FLUSH SYRINGE 10 ML IV SCH ×2 (11:04→21:11)
[2018-10-04 11:53] LABS: INR 1.15 (0.87-1.13)
[2018-10-04 11:54] LABS: Partial Thromboplastin Time 25.3 Sec. (24.2-36.6)
--- NOTE | 2018-10-04 12:11 | Progress Note ---
Assessment and Plan Assessment and plan: 23m with n/v and LUDY Sepsis due to gastroenteritis -resolving LUDY due to vasomotor nephropathy renal function not improving, nephrology following, cont IVF htn urgency bp meds initiated Hospitalist Physical - Constitutional Vitals: Temp Pulse Resp BP Pulse Ox 98.4 F 54 L 19 162/97 100 10/04/18 12:00 10/04/18 12:00 10/04/18 12:00 10/04/18 12:00 10/04/18 12:00 General appearance: Present: no acute distress, well-nourished Results - Labs CBC & Chem 7: 10/05/18 04:59 10/05/18 04:59 Labs: Laboratory Last Values WBC 8.5 K/mm3 (4.5-11.0) 10/04/18 05:50 RBC 4.78 M/mm3 (3.65-5.03) 10/04/18 05:50 Hgb 13.0 gm/dl (11.8-15.2) 10/04/18 05:50 Hct 38.7 % (35.5-45.6) 10/04/18 05:50 MCV 81 fl (84-94) L 10/04/18 05:50 MCH 27 pg (28-32) L 10/04/18 05:50 MCHC 34 % (32-34) 10/04/18 05:50 RDW 13.6 % (13.2-15.2) 10/04/18 05:50 Plt Count 216 K/mm3 (140-440) 10/04/18 05:50 Add Manual Diff Complete 10/02/18 11:34 Total Counted 100 10/02/18 11:34 Seg Neutrophils % Slag Expander 10/02/18 11:34 Seg Neuts % (Manual) 99.0 % (40.0-70.0) H 10/02/18 11:34 0 % 10/02/18 11:34 1.0 % (13.4-35.0) L 10/02/18 11:34 Reactive Lymphs % (Man) 0 % 10/02/18 11:34 0 % (0.0-7.3) 10/02/18 11:34 0 % (0.0-4.3) 10/02/18 11:34 0 % (0.0-1.8) 10/02/18 11:34 0 % 10/02/18 11:34 0 % 10/02/18 11:34 0 % 10/02/18 11:34 0 % 10/02/18 11:34 Nucleated RBC % Not Reportable 10/02/18 11:34 Seg Neutrophils # Man 11.1 K/mm3 (1.8-7.7) H 10/02/18 11:34 Band Neutrophils # 0.0 K/mm3 10/02/18 11:34 0.1 K/mm3 (1.2-5.4) L 10/02/18 11:34 Abs React Lymphs (Man) 0.0 K/mm3 10/02/18 11:34 0.0 K/mm3 (0.0-0.8) 10/02/18 11:34 0.0 K/mm3 (0.0-0.4) 10/02/18 11:34 0.0 K/mm3 (0.0-0.1) 10/02/18 11:34 0.0 K/mm3 10/02/18 11:34 0.0 K/mm3 10/02/18 11:34 0.0 K/mm3 10/02/18 11:34 Blast Cells # 0.0 K/mm3 10/02/18 11:34 WBC Morphology Not Reportable 10/02/18 11:34 Hypersegmented Neuts Not Reportable 10/02/18 11:34 Hyposegmented Neuts Not Reportable 10/02/18 11:34 Hypogranular Neuts Not Reportable 10/02/18 11:34 Not Reportable 10/02/18 11:34 Not Reportable 10/02/18 11:34 Not Reportable 10/02/18 11:34 Not Reportable 10/02/18 11:34 Not Reportable 10/02/18 11:34 Not Reportable 10/02/18 11:34 Consistent w auto 10/02/18 11:34 Not Reportable 10/02/18 11:34 Plt Clumps, EDTA Not Reportable 10/02/18 11:34 Not Reportable 10/02/18 11:34 Not Reportable 10/02/18 11:34 Not Reportable 10/02/18 11:34 Plt Morphology Comment Not Reportable 10/02/18 11:34 RBC Morphology Normal 10/02/18 11:34 Dimorphic RBCs Not Reportable 10/02/18 11:34 Not Reportable 10/02/18 11:34 Not Reportable 10/02/18 11:34 Not Reportable 10/02/18 11:34 Not Reportable 10/02/18 11:34 Not Reportable 10/02/18 11:34 Not Reportable 10/02/18 11:34 Not Reportable 10/02/18 11:34 Not Reportable 10/02/18 11:34 Not Reportable 10/02/18 11:34 Not Reportable 10/02/18 11:34 Not Reportable 10/02/18 11:34 Not Reportable 10/02/18 11:34 Not Reportable 10/02/18 11:34 Not Reportable 10/02/18 11:34 Not Reportable 10/02/18 11:34 Not Reportable 10/02/18 11:34 Not Reportable 10/02/18 11:34 Not Reportable 10/02/18 11:34 Not Reportable 10/02/18 11:34 Acanthocytes (Spur) Not Reportable 10/02/18 11:34 Rouleaux Not Reportable 10/02/18 11:34 Not Reportable 10/02/18 11:34 Not Reportable 10/02/18 11:34 Not Reportable 10/02/18 11:34 Not Reportable 10/02/18 11:34 Hem Pathologist Commnt No 10/02/18 11:34 PT 14.4 Sec. (12.2-14.9) 10/04/18 11:34 INR 1.15 (0.87-1.13) H 10/04/18 11:34 APTT 25.3 Sec. (24.2-36.6) 10/04/18 11:34 Sodium 139 mmol/L (137-145) 10/04/18 05:50 Potassium 3.5 mmol/L (3.6-5.0) L 10/04/18 05:50 Chloride 102.9 mmol/L (98-107) 10/04/18 05:50 Carbon Dioxide 18 mmol/L (22-30) L 10/04/18 05:50 22 mmol/L 10/04/18 05:50 BUN 54 mg/dL (9-20) H 10/04/18 05:50 6.4 mg/dL (0.8-1.5) H 10/04/18 05:50 Estimated GFR 11 ml/min 10/04/18 05:50 8 % 10/04/18 05:50 Glucose 105 mg/dL (75-100) H 10/04/18 05:50 5.3 % (4-6) 10/02/18 Unknown 309 Mosm/kg 10/02/18 12:40 Calcium 7.6 mg/dL (8.4-10.2) L 10/04/18 05:50 Phosphorus 2.40 mg/dL (2.5-4.5) L 10/02/18 Unknown Magnesium 1.70 mg/dL (1.7-2.3) 10/02/18 11:34 0.50 mg/dL (0.1-1.2) 10/02/18 11:34 AST 11 units/L (5-40) 10/02/18 11:34 ALT 14 units/L (7-56) 10/02/18 11:34 139 units/L (35-129) H 10/02/18 11:34 248 units/L (55-170) H 10/02/18 11:34 < 0.010 ng/mL (0.00-0.029) 10/02/18 11:34 8.3 g/dL (6.3-8.2) H 10/02/18 11:34 4.7 g/dL (3.9-5) 10/02/18 11:34 1.3 % 10/02/18 11:34 38 units/L (13-60) 10/02/18 11:34 PTH Intact 349.2 pg/mL (15-65) H 10/02/18 Unknown Straw (Yellow) 10/02/18 12:16 Clear (Clear) 10/02/18 12:16 6.0 (5.0-7.0) 10/02/18 12:16 Ur Specific [place] 1.009 (1.003-1.030) 10/02/18 12:16 >500 mg/dL (Negative) 10/02/18 12:16 50 mg/dL (Negative) 10/02/18 12:16 Neg mg/dL (Negative) 10/02/18 12:16 Sm (Negative) 10/02/18 12:16 Neg (Negative) 10/02/18 12:16 Neg (Negative) 10/02/18 12:16 < 2.0 mg/dL (<2.0) 10/02/18 12:16 Ur Leukocyte Esterase Neg (Negative) 10/02/18 12:16 < 1.0 /HPF (0.0-6.0) 10/02/18 12:16 6.0 /HPF (0.0-6.0) 10/02/18 12:16 1+ /HPF (Negative) 10/02/18 12:16 None seen (None Seen) 10/02/18 15:12 281 Mosm/kg 10/02/18 12:50 43 mmol/L 10/02/18 12:50 29.4 mmolL (110-250) L 10/02/18 12:50 Hepatitis A IgM Ab Non-reactive (NonReactive) 10/03/18 13:55 Hep Bs Antigen Non-reactive (Negative) 10/03/18 13:55 Hep B Core IgM Ab Non-reactive (NonReactive) 10/03/18 13:55 Non-reactive (NonReactive) 10/03/18 13:55 HIV 1&2 Antibody Rapid Non react (Non React) 10/03/18 13:55 Non react (Non React) 10/03/18 13:55 Active Medications - Current Medications Current Medications: Generic Name Dose Route Start Last Admin Trade Name Freq PRN Reason Stop Dose Admin Acetaminophen 650 mg 10/02/18 18:03 Tylenol PO Q6H PRN Pain, Mild (1-3) Heparin Sodium (Porcine) 5,000 unit 10/03/18 10:00 10/03/18 23:23 Heparin SUB-Q 5,000 unit Q12HR SLIM Administration Hydromorphone HCl 0.5 mg 10/02/18 19:32 Dilaudid IV Q3H PRN Pain , Severe (7-10) Sodium Chloride 1,000 mls @ 100 mls/hr 10/02/18 15:00 10/04/18 11:03 Nacl 0.9% 1000 Ml IV 100 mls/hr DIRECT SLIM Administration Metoclopramide HCl 10 mg 10/02/18 19:38 10/04/18 06:17 Reglan IV 10 mg Q6H PRN Administration Nausea And Vomiting Morphine Sulfate 2 mg 10/02/18 18:12 10/03/18 08:49 Morphine IV 2 mg Q4H PRN Administration Pain, Moderate (4-6) Ondansetron HCl 4 mg 10/02/18 19:32 10/03/18 07:55 Zofran IV 4 mg Q8H PRN Administration Nausea And Vomiting Sodium Chloride 10 ml 10/02/18 22:00 10/04/18 11:04 Sodium Chloride Flush Syringe 10 Ml IV 10 ml BID SLIM Administration Sodium Chloride 10 ml 10/02/18 19:32 Sodium Chloride Flush Syringe 10 Ml IV PRN PRN LINE FLUSH
[2018-10-04] MEDS: HEPARIN SUB-Q SCH ×2 (12:39→21:09)
[2018-10-04] MEDS ORDERED: APRESOLINE IV PRN (14:19)
[2018-10-04] MEDS: NORVASC PO SCH (15:35)
[2018-10-05 05:59] LABS: Hematocrit 37.8 % (35.5-45.6); Hemoglobin 12.7 gm/dl (11.8-15.2); Mean Corpuscular HGB Conc 34 % (32-34); Mean Corpuscular Volume 81 fl (84-94); Platelet Count 180 K/mm3 (140-440); Red Blood Count 4.67 M/mm3 (3.65-5.03); Red Cell Distribution Width 13.7 % (13.2-15.2)
[2018-10-05 06:21] LABS: Calcium 7.1 mg/dL (8.4-10.2)
[2018-10-05] MEDS: NACL 0.9% 1000 ML 1,000 ML IV SCH ×2 (07:32→19:14)
[2018-10-05] MEDS ORDERED: ZOFRAN IV ONE (07:57)
[2018-10-05] MEDS ORDERED: DILAUDID IV SCH ×2 (08:00)
[2018-10-05] MEDS ORDERED: DILAUDID ONE (09:03)
[2018-10-05] MEDS ORDERED: DILAUDID IV ONE (09:07)
--- NOTE | 2018-10-05 09:43 | Progress Note ---
Assessment and Plan - Patient Problems (1) SIRS (systemic inflammatory response syndrome) Current Visit: Yes Status: Acute Plan to address problem: High white count and severe Gastroenteritis Clinical picture c/w SIRS and ATN (2) LUDY (acute kidney injury) Current Visit: Yes Status: Acute Plan to address problem: Sec to Acute Gastroenteritis IV Fluids for now C/w ATN Nephrology consult appreciated (3) Gastroenteritis Current Visit: Yes Status: Acute Plan to address problem: IV Fluids for now Improved (4) DVT prophylaxis Current Visit: Yes Status: Acute Plan to address problem: On Heparin and GI prophylaxis Subjective Date of service: 10/05/18 Principal diagnosis: ARF Interval history: Admitted for LUDY/CKD Urinating well Feeling better Objective - Constitutional Vitals: Vital Signs - 12hr 10/04/18 10/05/18 10/05/18 23:09 05:31 08:45 Temperature 98.4 F 97.8 F Pulse Rate 60 92 H Pulse Rate [ 92 H Intra-Procedure ] Pulse Rate [ Post-Procedure] Respiratory 20 20 Rate Respiratory 20 Rate [Intra- Procedure] Respiratory Rate [Post- Procedure] Blood Pressure 159/91 150/87 Blood Pressure 146/92 [Intra- Procedure] Blood Pressure [Post-Procedure ] O2 Sat by Pulse 98 100 Oximetry O2 Sat by Pulse 100 Oximetry [ Intra-Procedure ] O2 Sat by Pulse Oximetry [Post -Procedure] 10/05/18 10/05/18 10/05/18 09:00 09:06 09:15 Temperature Pulse Rate Pulse Rate [ 69 78 Intra-Procedure ] Pulse Rate [ 69 Post-Procedure] Respiratory Rate Respiratory 20 18 Rate [Intra- Procedure] Respiratory 13 Rate [Post- Procedure] Blood Pressure Blood Pressure 131/76 126/70 [Intra- Procedure] Blood Pressure 144/79 [Post-Procedure ] O2 Sat by Pulse Oximetry O2 Sat by Pulse 99 100 Oximetry [ Intra-Procedure ] O2 Sat by Pulse 99 Oximetry [Post -Procedure] 10/05/18 09:34 Temperature Pulse Rate Pulse Rate [ Intra-Procedure ] Pulse Rate [ 70 Post-Procedure] Respiratory Rate Respiratory Rate [Intra- Procedure] Respiratory 14 Rate [Post- Procedure] Blood Pressure Blood Pressure [Intra- Procedure] Blood Pressure 150/70 [Post-Procedure ] O2 Sat by Pulse Oximetry O2 Sat by Pulse Oximetry [ Intra-Procedure ] O2 Sat by Pulse 99 Oximetry [Post -Procedure] General appearance: Present: no acute distress, well-nourished - EENT Eyes: PERRL, EOM intact ENT: hearing intact, clear oral mucosa Ears: bilateral: normal - Neck Neck: supple, normal ROM - Respiratory Respiratory effort: normal Respiratory: bilateral: CTA - Breasts Breasts: normal - Cardiovascular Rhythm: regular Heart Sounds: Present: S1 & S2. Absent: gallop, rub Extremities: no ischemia, pulses intact, No edema, normal color, Full ROM - Gastrointestinal General gastrointestinal: Present: soft, non-tender, non-distended, normal bowel sounds - Genitourinary Male genitourinary: normal - Integumentary Integumentary: clear, warm, dry - Musculoskeletal Musculoskeletal: 1, strength equal bilaterally - Neurologic Neurologic: moves all extremities - Psychiatric Psychiatric: memory intact, appropriate mood/affect, intact judgment & insight - Labs CBC & Chem 7: 10/06/18 05:21 10/06/18 05:21 Labs: Abnormal lab results 10/04/18 10/05/18 10/05/18 Range/Units 11:34 04:59 04:59 MCV 81 L (84-94) fl MCH 27 L (28-32) pg INR 1.15 H (0.87-1.13) Potassium 3.3 L (3.6-5.0) mmol/L Carbon Dioxide 19 L (22-30) mmol/L BUN 46 H (9-20) mg/dL Creatinine 6.1 H (0.8-1.5) mg/dL Glucose 120 H (75-100) mg/dL Calcium 7.1 L (8.4-10.2) mg/dL Short CBC 10/06/18 Range/Units 05:21 WBC 6.8 (4.5-11.0) K/mm3 Hgb 12.5 (11.8-15.2) gm/dl Hct 36.8 (35.5-45.6) % Plt Count 169 (140-440) K/mm3 [facility] 10/06/18 05:21 Sodium 137 Potassium 3.4 L Chloride 104.5 Carbon Dioxide 17 L BUN 46 H Creatinine 6.3 H Glucose 133 H Calcium 7.0 L
--- NOTE | 2018-10-05 10:01 | Cat Scan Report ---
CT-GUIDED RENAL BIOPSY, RIGHT INDICATION : renal failure with proteinuria. COMPARISON: 10/02/2018 CT abdomen pelvis without contrast PROCEDURE: The risks (including but not limited to bleeding and infection) and benefits were explain ed to the patient and informed consent was obtained. An tab card press operator was utilized because the patient was [id number]. All CT scans at this location are performed using CT dose reduction for ALA RA by means of automated exposure control. A time out procedure was performed. The procedure site was prepped and draped in the usual sterile f ashion and lidocaine was used for local anesthesia. Anxiolysis was accomplished with 2 mg of Dilaudid and 4 mg of Zofran IV. Independent cardiorespirator y monitoring by RN. Intraobserver time of [address] guidance, a 17-gauge introducer needle was advanced to the inferior pole of the right kidney . 2 separate 1.3 cm 18-gauge core biopsies were obtained. Postbiopsy scan demonstrates trace bleeding at the biopsy site. No uncontained hemorrhage. The patient tolerated the procedure well with no complications. IMPRESSION: Successful CT-guided biopsy at the inferior pole of the right kidney. Signer Name: Twan Young Jr, MD Signed: 10/05/2018 9:57 AM Workstation Name: [id number]
[2018-10-05] MEDS: NORVASC PO SCH (10:10)
[2018-10-05] MEDS: HEPARIN SUB-Q SCH ×2 (10:10→22:43)
[2018-10-05] MEDS: SODIUM CHLORIDE FLUSH SYRINGE 10 ML IV SCH ×3 (10:12→22:43)
--- NOTE | 2018-10-05 13:32 | Progress Note ---
Assessment and Plan Assessment: Acute Kidney Injury secondary to prerenal in setting of vomiting, diarrhea, ? CKD, no obstruction, Non-Anion Gap Metabolic Acidosis Abdominal Pain Nausea and vomiting Diarrhea Left Nephrolithiasis Hypokalemia Plan: - Renal function reviewed, SCr level 6.1 today, serum creatinine was 6.4 yesterday, non-oliguric - CT Guided Right Renal biopsy was performed this morning, await pathology results - Secondary GN work up so far negative for HIV, HCV and HBV - CAROLYNE, ANCA, C3, C4, SPEP, anti-GBM- pending - No obstruction noted on CT - Exact SCr baseline unknown - On 0.9% NS infusion @ 100 ml/hr - Replete potassium as needed - No urine eosinophils - Strict intake and output - Renally dose medications - Avoid nephrotoxic agents - Caraballo Catheter: No - No acute indication for initiation of DELIVERY ASSISTANT at this time - Continue to monitor renal function Subjective Date of service: 10/05/18 Principal diagnosis: ARF Interval history: Patient seen lying in bed. Awake and alert. No family at bedside. Objective - Vital Signs Vital signs: Vital Signs - 12hr 10/05/18 10/05/18 10/05/18 05:31 08:45 09:00 Temperature 97.8 F Pulse Rate 92 H Pulse Rate [ 92 H 69 Intra-Procedure ] Pulse Rate [ Post-Procedure] Respiratory 20 Rate Respiratory 20 20 Rate [Intra- Procedure] Respiratory Rate [Post- Procedure] Blood Pressure 150/87 Blood Pressure 146/92 131/76 [Intra- Procedure] Blood Pressure [Post-Procedure ] O2 Sat by Pulse 100 Oximetry O2 Sat by Pulse 100 99 Oximetry [ Intra-Procedure ] O2 Sat by Pulse Oximetry [Post -Procedure] 10/05/18 10/05/18 10/05/18 09:06 09:15 09:34 Temperature Pulse Rate Pulse Rate [ 78 Intra-Procedure ] Pulse Rate [ 69 70 Post-Procedure] Respiratory Rate Respiratory 18 Rate [Intra- Procedure] Respiratory 13 14 Rate [Post- Procedure] Blood Pressure Blood Pressure 126/70 [Intra- Procedure] Blood Pressure 144/79 150/70 [Post-Procedure ] O2 Sat by Pulse Oximetry O2 Sat by Pulse 100 Oximetry [ Intra-Procedure ] O2 Sat by Pulse 99 99 Oximetry [Post -Procedure] 10/05/18 10/05/18 10/05/18 10:06 10:10 11:12 Temperature 97.8 F 98.1 F Pulse Rate 61 56 L Pulse Rate [ Intra-Procedure ] Pulse Rate [ Post-Procedure] Respiratory 20 20 Rate Respiratory Rate [Intra- Procedure] Respiratory Rate [Post- Procedure] Blood Pressure 133/77 133/77 127/72 Blood Pressure [Intra- Procedure] Blood Pressure [Post-Procedure ] O2 Sat by Pulse 97 100 Oximetry O2 Sat by Pulse Oximetry [ Intra-Procedure ] O2 Sat by Pulse Oximetry [Post -Procedure] - General Appearance General appearance: well-developed, appears stated age, fatigue EENT: ATNC, PERRL, hearing intact, vision intact Neck: no JVD, supple Respiratory: Present: Clear to Ascultation Cardiology: regular, S1S2 Gastrointestinal: normoactive bowel sounds Integumentary: warm and dry Neurologic: alert and oriented x3 Musculoskeletal: other (No edema) Psychiatric: cooperative - Lab 10/05/18 04:59 10/05/18 04:59 Most recent lab results Calcium 7.1 mg/dL (8.4-10.2) L 10/05/18 04:59 Phosphorus 2.40 mg/dL (2.5-4.5) L 10/02/18 Unknown Magnesium 1.70 mg/dL (1.7-2.3) 10/02/18 11:34 43 mmol/L 10/02/18 12:50 Medications & Allergies - Medications Allergies/Adverse Reactions: Allergies No Known Allergies Allergy (Verified 10/02/18 14:49) Home Medications: Home Medications Medication Instructions Recorded Confirmed Last Taken Type No Known Home Medications [No 10/02/18 10/02/18 Unknown History Reported Home Medications] Active Medications: Generic Name Dose Route Start Last Admin Trade Name Freq PRN Reason Stop Dose Admin Acetaminophen 650 mg 10/02/18 18:03 Tylenol PO Q6H PRN Pain, Mild (1-3) Amlodipine Besylate 10 mg 10/04/18 15:00 10/05/18 10:10 Norvasc PO 10 mg QDAY [facility] Administration Heparin Sodium (Porcine) 5,000 unit 10/03/18 10:00 10/05/18 10:10 Heparin SUB-Q Not Given Q12HR SLIM Hydralazine HCl 10 mg 10/04/18 14:19 Apresoline IV Q4HR PRN BP >160/100 Hydromorphone HCl 1 mg 10/05/18 08:00 10/05/18 08:55 Dilaudid IV 10/05/18 15:59 1 mg ONCE SLIM Administration Hydromorphone HCl 1 mg 10/05/18 08:00 10/05/18 09:00 Dilaudid IV 10/05/18 15:59 1 mg ONCE SLIM Administration Sodium Chloride 1,000 mls @ 100 mls/hr 10/02/18 15:00 10/05/18 07:32 Nacl 0.9% 1000 Ml IV 100 mls/hr DIRECT LSIM Administration Metoclopramide HCl 10 mg 10/02/18 19:38 10/04/18 15:35 Reglan IV 10 mg Q6H PRN Administration Nausea And Vomiting Morphine Sulfate 2 mg 10/02/18 18:12 10/03/18 08:49 Morphine IV 2 mg Q4H PRN Administration Pain, Moderate (4-6) Ondansetron HCl 4 mg 10/02/18 19:32 10/03/18 07:55 Zofran IV 4 mg Q8H PRN Administration Nausea And Vomiting Sodium Chloride 10 ml 10/02/18 22:00 10/05/18 10:13 Sodium Chloride Flush Syringe 10 Ml IV 10 ml BID SLIM Administration Sodium Chloride 10 ml 10/02/18 19:32 10/05/18 10:12 Sodium Chloride Flush Syringe 10 Ml IV 10 ml PRN PRN Administration LINE FLUSH
[2018-10-05] MEDS ORDERED: K-DUR PO ONE (18:03)
[2018-10-06] MEDS: NACL 0.9% 1000 ML 1,000 ML IV SCH (04:31)
[2018-10-06 06:00] LABS: Hematocrit 36.8 % (35.5-45.6); Hemoglobin 12.5 gm/dl (11.8-15.2); Mean Corpuscular HGB Conc 34 % (32-34); Mean Corpuscular Volume 81 fl (84-94); Platelet Count 169 K/mm3 (140-440); Red Blood Count 4.55 M/mm3 (3.65-5.03); Red Cell Distribution Width 13.6 % (13.2-15.2)
[2018-10-06] MEDS ORDERED: K-DUR PO NR (09:17)
--- NOTE | 2018-10-06 09:23 | Progress Note ---
Assessment and Plan - Patient Problems (1) LUDY (acute kidney injury) Current Visit: Yes Status: Acute Plan to address problem: Sec to Acute Gastroenteritis C/w ATN Discussed with Dr Knowles Waiting for biopsy results Creatinine at 46/6.3--No improvement Will stop the IV fluids No need for Dialysis (2) Gastroenteritis Current Visit: Yes Status: Acute Plan to address problem: IV Fluids for now Improved (3) DVT prophylaxis Current Visit: Yes Status: Acute Plan to address problem: On Heparin and GI prophylaxis Subjective Date of service: 10/06/18 Principal diagnosis: ARF Interval history: Admitted for LUDY/CKD Urinating well Feeling better Objective - Constitutional Vitals: Vital Signs - 12hr 10/05/18 10/05/18 10/06/18 23:00 23:42 05:43 Temperature 98.2 F 98.5 F Pulse Rate 65 65 Respiratory 18 20 Rate Blood Pressure 125/76 147/89 O2 Sat by Pulse 98 100 100 Oximetry General appearance: Present: no acute distress, well-nourished - EENT Eyes: PERRL, EOM intact ENT: hearing intact, clear oral mucosa Ears: bilateral: normal - Neck Neck: supple, normal ROM - Respiratory Respiratory effort: normal Respiratory: bilateral: CTA - Breasts Breasts: normal - Cardiovascular Heart rate: 78 Rhythm: regular Heart Sounds: Present: S1 & S2. Absent: gallop, rub Extremities: no ischemia, pulses intact, No edema, normal color, Full ROM - Gastrointestinal General gastrointestinal: Present: soft, non-tender, non-distended, normal bowel sounds Rectal Exam: deferred - Genitourinary Male genitourinary: normal - Integumentary Integumentary: clear, warm, dry - Musculoskeletal Musculoskeletal: 1, strength equal bilaterally - Neurologic Neurologic: moves all extremities - Psychiatric Psychiatric: memory intact, appropriate mood/affect, intact judgment & insight - Allied health notes Allied health notes reviewed: nursing, case management - Labs CBC & Chem 7: 10/06/18 05:21 10/06/18 05:21 Labs: Abnormal lab results 10/06/18 10/06/18 Range/Units 05:21 05:21 MCV 81 L (84-94) fl MCH 27 L (28-32) pg Potassium 3.4 L (3.6-5.0) mmol/L Carbon Dioxide 17 L (22-30) mmol/L BUN 46 H (9-20) mg/dL Creatinine 6.3 H (0.8-1.5) mg/dL Glucose 133 H (75-100) mg/dL Calcium 7.0 L (8.4-10.2) mg/dL
--- NOTE | 2018-10-06 09:27 | Progress Note ---
Assessment and Plan severe renal failure, baseline unknown Non-Anion Gap Metabolic Acidosis Abdominal Pain Nausea and vomiting Diarrhea Left Nephrolithiasis Hypokalemia Plan: - cont tohave elevated Cr and BUn, non oliguric - CT Guided Right Renal biopsy was performed 10/05/18, await pathology results - Secondary GN work up so far negative for HIV, HCV and HBV, cormal complement level - no indication for FISH TRAPPER, likely to be initiated as an outpatient - CAROLYNE, ANCA, SPEP, anti-GBM- pending - d/c IVF - No obstruction noted on CT - No urine eosinophils - Strict intake and output - Renally dose medications - Avoid nephrotoxic agents - Caraballo Catheter: No - Continue to monitor renal function Mahendra Knowles MD [phone] Subjective Date of service: 10/06/18 Principal diagnosis: ARF Interval history: tolerated kidney biopsy Objective - Vital Signs Vital signs: Vital Signs - 12hr 10/05/18 10/05/18 10/06/18 23:00 23:42 05:43 Temperature 98.2 F 98.5 F Pulse Rate 65 65 Respiratory 18 20 Rate Blood Pressure 125/76 147/89 O2 Sat by Pulse 98 100 100 Oximetry - General Appearance General appearance: well-developed, well-nourished, appears stated age EENT: ATNC, PERRL, mucous membranes moist Neck: no JVD Respiratory: Present: Clear to Ascultation. Absent: Rales, Ronchi Cardiology: regular, S1S2 Gastrointestinal: normoactive bowel sounds Integumentary: no rash, warm and dry Neurologic: no focal deficit, no asterixis, alert and oriented x3 Musculoskeletal: other (no edema in BLE) Psychiatric: cooperative - Lab 10/06/18 05:21 10/06/18 05:21 Most recent lab results Calcium 7.0 mg/dL (8.4-10.2) L 10/06/18 05:21 Phosphorus 2.40 mg/dL (2.5-4.5) L 10/02/18 Unknown Magnesium 1.70 mg/dL (1.7-2.3) 10/02/18 11:34 43 mmol/L 10/02/18 12:50 Medications & Allergies - Medications Allergies/Adverse Reactions: Allergies No Known Allergies Allergy (Verified 10/02/18 14:49) Home Medications: Home Medications Medication Instructions Recorded Confirmed Last Taken Type No Known Home Medications [No 08/18/19 08/18/19 Unknown History Reported Home Medications] Active Medications: Generic Name Dose Route Start Last Admin Trade Name Anivalq PRN Reason Stop Dose Admin Acetaminophen 650 mg 10/02/18 18:03 Tylenol PO Q6H PRN Pain, Mild (1-3) Amlodipine Besylate 10 mg 10/04/18 15:00 10/05/18 10:10 Norvasc PO 10 mg QDAY SLIM Administration Heparin Sodium (Porcine) 5,000 unit 10/03/18 10:00 10/05/18 22:43 Heparin SUB-Q 5,000 unit Q12HR SLIM Administration Hydralazine HCl 10 mg 10/04/18 14:19 Apresoline IV Q4HR PRN BP >160/100 Metoclopramide HCl 10 mg 10/02/18 19:38 10/04/18 15:35 Reglan IV 10 mg Q6H PRN Administration Nausea And Vomiting Morphine Sulfate 2 mg 10/02/18 18:12 10/03/18 08:49 Morphine IV 2 mg Q4H PRN Administration Pain, Moderate (4-6) Ondansetron HCl 4 mg 10/02/18 19:32 10/03/18 07:55 Zofran IV 4 mg Q8H PRN Administration Nausea And Vomiting Potassium Chloride 40 meq 10/06/18 09:17 K-Dur PO 10/06/18 12:00 ONCE NR Sodium Chloride 10 ml 10/02/18 22:00 10/05/18 22:43 Sodium Chloride Flush Syringe 10 Ml IV 10 ml BID SLIM Administration Sodium Chloride 10 ml 10/02/18 19:32 10/05/18 10:12 Sodium Chloride Flush Syringe 10 Ml IV 10 ml PRN PRN Administration LINE FLUSH
[2018-10-06] MEDS: HEPARIN SUB-Q SCH (10:07)
[2018-10-06] MEDS: NORVASC PO SCH (10:08)
[2018-10-06] MEDS: SODIUM CHLORIDE FLUSH SYRINGE 10 ML IV SCH (10:08)
[2018-10-06] MEDS: BICITRA PO SCH ×2 (13:10→16:37)
--- NOTE | 2018-10-06 16:27 | Discharge Summary ---
Providers - Providers Date of Admission: 10/02/18 14:02 Date of discharge: 10/06/18 Attending physician: ROSEANNE BA 10/02/18 13:56 Consult to Physician [CONS] Urgent Comment: Consulting Provider: GUMARO GIL Physician Instructions: Reason For Exam: acute renal failure [facility] Condition: Stable Pertinent studies: Abd Ct IMPRESSION: 1. No significant abnormality. 2. Multiple small calculi within the appendix 3. Slightly shrunken kidneys 4. Left nephrolithiasis 5. Bilateral pars defect L5 Procedures: Renal Biopsy done Hospital course: (1) LUDY (acute kidney injury) Current Visit: Yes Status: Acute Plan to address problem: Sec to Acute Gastroenteritis C/w ATN Discussed with Dr Knowles Waiting for biopsy results Creatinine at 46/6.3--No improvement Will stop the IV fluids No need for Dialysis Has ESRD Needs HD in the future needs follow up with Nephrology Dr Knowles Needs follow up for biopsy results To rule out vaculitis (2) Gastroenteritis Current Visit: Yes Status: Acute Plan to address problem: Improved Vomiting prob sec to Uremic Gastritis Disposition: DC-01 TO HOME OR SELFCARE Core Measure Documentation - Palliative Care Palliative Care/ Comfort Measures: Not Applicable - Core Measures Any of the following diagnoses?: none Exam - Constitutional Vitals: Temp Pulse Resp BP Pulse Ox 98.7 F 57 L 20 139/82 100 10/06/18 11:28 10/06/18 11:28 10/06/18 11:28 10/06/18 11:28 10/06/18 11:28 General appearance: Present: no acute distress, well-nourished - EENT Eyes: Present: PERRL ENT: hearing intact, clear oral mucosa - Neck Neck: Present: supple, normal ROM - Respiratory Respiratory effort: normal Respiratory: bilateral: CTA - Cardiovascular Heart rate: 78 Rhythm: regular Heart Sounds: Present: S1 & S2. Absent: rub, click - Extremities Extremities: no ischemia, pulses intact, pulses symmetrical, No edema Peripheral Pulses: within normal limits - Abdominal General gastrointestinal: Present: soft, non-tender, non-distended, normal bowel sounds Male genitourinary: Present: normal - Rectal Rectal Exam: deferred - Integumentary Integumentary: Present: clear, warm, dry - Musculoskeletal Musculoskeletal: gait normal, strength equal bilaterally - Psychiatric Psychiatric: appropriate mood/affect, intact judgment & insight - Neurologic Neurologic: CNII-XII intact, moves all extremities - Allied Health Allied health notes reviewed: nursing, case management Plan Activity: no restrictions Diet: renal Follow up with: SANDOVAL MARTINEZ MD [Primary Care Provider] - 3-5 Days EMELINA KNOWLES MD [Staff Physician] - 7 Days
[2018-10-06 17:26] VITALS: BP 133/91
[2018-10-07 06:11] LABS: Albumin 3.9 g/dL (3.8-4.8); Gamma Globulin 1.1 g/dL (0.8-1.7)
== END 2018-10-06 17:33 | disposition home or self-care (01) | DRG 871 ==
LOC: ED 11:11 → 3A 14:02
PROVIDERS: ADMIT Internal Medicine; ATTEND Internal Medicine
PROC: 0TB03ZX Excision of Right Kidney, Percutaneous Approach, Diagnostic (ICD-10-PCS; principal; 2018-10-05)
DX: A41.9 Sepsis, unspecified organism (principal); N17.0 Acute kidney failure with tubular necrosis; N18.6 End stage renal disease; E87.2 Acidosis; K52.9 Noninfective gastroenteritis and colitis, unspecified; K29.60 Other gastritis without bleeding; E87.6 Hypokalemia; N20.0 Calculus of kidney; I16.0 Hypertensive urgency
CPT/HCPCS: 36415; 74176; 77012; 80048; 80053; 80074; 81001; 82436; 82550; 83036; 83520; 83690; 83735; 83930; 83935; 83970; 84100; 84165; 84300; 84484; 85007; 85025; 85027; 85610; 85730; 86021; 86038; 86160; 87806; 89050; 93005; 93010; 96374; 96375; G0378; J1170; J1644; J2270; J2405; J2765; J7030; Q0162